=== PATIENT | female | born 1945 | race Caucasian/White ===

== ENCOUNTER 2019-09-27 10:00 | Emergency (ER) | payer MEDICARE ==
--- NOTE | 2019-09-27 10:20 | ERPHSYRPT ---
- History of Present Illness Time Seen by Provider: 09/27/19 10:20 Source: patient, family Exam Limitations: no limitations Physician History: This is a 73-year-old white female who is been diagnosed with arthritis. Patient states she actually has pain in several different joints. However in the last month her pain is more significant in her lower extremities bilaterally. She states pain in her left hip and right foot and ankle. She denies any acute traumatic injury. She is not on any medications for pain. Her primary care physician, Dr. Sotomayor, is out of the office until October and is concerned that the pain will be persistent and she has no management of her pain. She has been using Tylenol and ibuprofen and states that this regimen helps just a bit for very short period of time. Patient did take 1 of her husbands Lortab 7.5 mg tablets at his urging and that seemed to help her pain quite a bit. However she does not want to be on the hydrocodone medication long -term. Method of Injury: other (No injury) Occurred: other (Worsening over the last 30 days) Quality: constant, aching (In the mornings it is worse and slightly improved throughout the day as she is moving around but still present) Severity of Pain-Max: moderate Severity of Pain-Current: moderate Modifying Factors: Improves With: movement Associated Symptoms: other (Hurts all over in several joints throughout the day) Allergies/Adverse Reactions: No Known Drug Allergies Allergy (Unverified 09/27/19 10:41) Home Medications: Aspirin 81 mg PO DAILY 09/27/19 [History] - Review of Systems Constitutional: No Symptoms Eyes: No Symptoms Ears, Nose, & Throat: No Symptoms Respiratory: No Symptoms Cardiac: No Symptoms Abdominal/Gastrointestinal: No Symptoms Genitourinary Symptoms: No Symptoms Musculoskeletal: Joint Pain (All her joints), No Fall, No Injury Skin: No Symptoms Neurological: No Symptoms Psychological: No Symptoms Endocrine: No Symptoms Hematologic/Lymphatic: No Symptoms Immunological/Allergic: No Symptoms All Other Systems: Reviewed and Negative - Past Medical History Pertinent Past Medical History: Yes Neurological History: No Pertinent History ENT History: No Pertinent History Cardiac History: No Pertinent History Respiratory History: No Pertinent History Endocrine Medical History: No Pertinent History Musculoskeletal History: No Pertinent History GI Medical History: No Pertinent History History: No Pertinent History Psycho-Social History: No Pertinent History Female Reproductive Disorders: No Pertinent History - Past Surgical History Neuro Surgical History: No Pertinent History Cardiac: No Pertinent History Respiratory: No Pertinent History Gastrointestinal: No Pertinent History Genitourinary: No Pertinent History Musculoskeletal: No Pertinent History Female Surgical History: No Pertinent History - Nursing Vital Signs Nursing Vital Signs: Initial Vital Signs Pulse Rate 89 09/27/19 10:27 Respiratory Rate 16 09/27/19 10:27 Blood Pressure 174/92 09/27/19 10:27 O2 Sat by Pulse Oximetry 98 09/27/19 10:27 Pain Scale Pain Intensity [Right Hip] 10 Pain Intensity 10 - Physical Exam General Appearance: mild distress, alert, anxiety Eyes, Ears, Nose, Throat Exam: normal ENT inspection, moist mucous membranes Neck Exam: normal inspection, non-tender, supple, full range of motion Cardiovascular/Respiratory Exam: chest non-tender Gastrointestinal/Abdominal Exam: non-tender Back Exam: normal inspection, normal range of motion, CVA tenderness Hips Exam: bilateral: normal inspection, normal range of motion, no evidence of injury, pain (With movement) Legs Exam: bilateral leg: normal inspection, normal range of motion, no evidence of injury, pain (With movement) Knees Exam: bilateral knee: normal inspection, normal range of motion, no evidence of injury, pain (With movement) Ankle Exam: bilateral ankle: normal inspection, normal range of motion, no evidence of injury, pain (With movement) Foot Exam: bilateral foot: normal inspection, normal range of motion, no evidence of injury, pain (With movement) Neuro/Tendon Exam: normal sensation, normal motor functions, normal tendon functions, responds to pain, no evidence tendon injury, No motor deficit, No sensory deficit Mental Status Exam: alert, oriented x 3, cooperative Skin Exam: normal color, warm, dry SpO2 Interpretation: normal O2 Delivery: Room Air - Course Nursing assessment & vital signs reviewed: Yes Ordered Tests: Medication Summary Discontinued Medications Generic Name Dose Route Start Last Admin Trade Name Freq PRN Reason Stop Dose Admin Methylprednisolone Sodium Succinate 125 mg 09/27/19 10:52 Solu-Medrol 125 Mg IM 09/27/19 10:53 STAT ONE Tramadol HCl 50 mg 09/27/19 10:51 Ultram 50 Mg PO 09/27/19 10:52 STAT ONE - Progress Progress: unchanged Progress Note: 09/27/19 11:02 Medical decision making: The patient, her spouse and I had a long discussion regarding the patient's symptoms and possible diagnoses including arthritis, fibromyalgia, muscle skeletal pain. The patient wants to avoid hydrocodone and other narcotics. However, I did speak to her about using tramadol in combination with a steroid. I feel the most likely diagnosis is arthritis. Patient is aware that tramadol can break down into opiates and this is categorized as a narcotic. However she may not experience the sedation that some of the other narcotics give patients. Patient would like to use the combination of tramadol and steroids over the weekend and then she will contact her prescribing physician for further management. Patient does not want any other x-rays or other types of studies. She feels that her condition of arthritis is what is causing her pain in all her joints. Counseled pt/family regarding: diagnosis, need for follow-up, rad results - Departure Departure Disposition: Home Clinical Impression: Arthritis Condition: Stable Critical Care Time: No Referrals: NILDA SOTOMAYOR MD [Primary Care Provider] - Additional Instructions: Follow-up with your prescribing physician on September 30, 2019 for further management of your symptoms and complaints. Prescriptions: Prednisone 10 mg [Deltasone 10 mg] 10 mg PO BID #10 tablet Tramadol HCl 50 mg [Ultram 50 mg] 50 mg PO TID PRN #15 tablet MDD 3 PRN Reason: Moderate Pain
[2019-09-27] MEDS ORDERED: ULTRAM 50 MG PO ONE (10:51)
[2019-09-27] MEDS ORDERED: solu-MEDROL 125 MG IM ONE (10:52)
[2019-09-27] MEDS ORDERED: ULTRAM 50 MG ONE (11:12)
[2019-09-27] MEDS ORDERED: solu-MEDROL 125 MG ONE (11:12)
[2019-09-27 11:21] VITALS: BP 155/79; PULSE 73; O2SAT 95
== END 2019-09-27 11:46 | disposition home or self-care (01) ==
LOC: ED 10:00
DX: M19.90 Unspecified osteoarthritis, unspecified site (principal)
CPT/HCPCS: 96372; 99283; J2930; A9270-GY

== ENCOUNTER 2022-07-30 08:08 | Emergency (ER) | payer MEDICARE ==
[2022-07-30 08:25] VITALS: O2SAT 99
[2022-07-30] MEDS ORDERED: NORCO 5/325 MG PO ONE (09:08)
[2022-07-30] MEDS ORDERED: NORCO 5/325 MG ONE (09:12)
--- NOTE | 2022-07-30 09:12 | ERPHSYRPT ---
- History of Present Illness Time Seen by Provider: 07/30/22 08:17 Source: patient Exam Limitations: no limitations Patient Subjective Stated Complaint: Pt c/o of right shoulder pain, Triage Nursing Assessment: Pt brought to the ER by her , hypertensive, rates pain 10/, chronic pain in right shoulder, had x-ray done 8 years ago and was told that she had bone spurs and it started hurting about a month ago and Dr. Sotomayor put a shot in it but it gave her no relief and stated that the next day it began hurting even more, pt has an appt with him next Monday (6days), pt was also given Diclofenac twice a day and it hasn't given any relief Physician History: 76 years old female with history of arthritic right shoulder with chronic pain is getting worse for the last few weeks, was evaluated at primary care, given intra-articular injection with no relief and pain is gradually getting worse. Pain is moderate to severe sharp, more with movements of right shoulder and cannot raise above the head are backward. Sometimes pain does radiate to the arm. No recent fall or trauma reported. Occurred: other Quality: sharpness Severity of Pain-Max: severe Severity of Pain-Current: severe Extremities Pain Location: shoulder: right Modifying Factors: Improves With: immobilization. Worsens With: movement Allergies/Adverse Reactions: No Known Drug Allergies Allergy (Verified 07/30/22 08:24) Home Medications: Diclofenac Sodium 50 mg [Voltaren 50 mg] 50 mg PO BID 07/30/22 [History] Hx Tetanus, Diphtheria Vaccination/Date Given: No Hx Influenza Vaccination/Date Given: Yes Hx Pneumococcal Vaccination/Date Given: Yes Travel Risk - International Travel Have you traveled outside of the country in past 3 weeks: No - Coronavirus Screening Are you exhibiting any of the following symptoms?: No Close contact with a COVID-19 positive Pt in past 14-21 Days: No - Vaccine Status Have you recieved a Covid-19 vaccination: Yes 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 - Vaccination Dates Date of 2cond Vaccination (if applicable): 2020 - Review of Systems Constitutional: No Symptoms Ears, Nose, & Throat: No Symptoms Respiratory: No Symptoms Cardiac: No Symptoms Abdominal/Gastrointestinal: No Symptoms Genitourinary Symptoms: No Symptoms Musculoskeletal: Joint Pain Skin: No Symptoms Neurological: No Symptoms Hematologic/Lymphatic: No Symptoms Immunological/Allergic: No Symptoms - Past Medical History Pertinent Past Medical History: Yes Neurological History: No Pertinent History ENT History: No Pertinent History Cardiac History: No Pertinent History Respiratory History: No Pertinent History Endocrine Medical History: No Pertinent History Musculoskeletal History: No Pertinent History GI Medical History: No Pertinent History History: No Pertinent History Psycho-Social History: No Pertinent History Female Reproductive Disorders: No Pertinent History - Past Surgical History Past Surgical History: Yes Neuro Surgical History: No Pertinent History Cardiac: No Pertinent History Respiratory: No Pertinent History Gastrointestinal: Appendectomy Genitourinary: No Pertinent History Musculoskeletal: No Pertinent History Female Surgical History: Hysterectomy, Tubal Ligation - Social History Smoking Status: Current every day smoker Exposure to second hand smoke: Yes Drug Use: none Patient Lives Alone: No - Nursing Vital Signs Nursing Vital Signs: Initial Vital Signs Temperature 97.6 F 07/30/22 08:15 Pulse Rate 92 H 07/30/22 08:15 Blood Pressure 157/119 07/30/22 08:15 O2 Sat by Pulse Oximetry 99 07/30/22 08:15 Pain Scale Pain Intensity 6 - Physical Exam General Appearance: no apparent distress, alert Eyes, Ears, Nose, Throat Exam: normal ENT inspection Neck Exam: normal inspection, non-tender, supple, full range of motion Cardiovascular/Respiratory Exam: chest non-tender, normal breath sounds, regular rate/rhythm Abdominal Exam: non-tender Back Exam: normal inspection, normal range of motion Shoulder Exam: normal inspection, bone tenderness, limited ROM (Right shoulder cannot be taken above head. Positive empty can and Neer H[place]in. Intact distal neurovascular.), pain Elbow/Forearm Exam: normal inspection, non-tender, no evidence of injury, normal ROM Wrist Exam: normal inspection, non-tender, no evidence of injury, normal ROM Hand Exam: normal inspection Neuro/Tendon Exam: normal sensation Mental Status Exam: alert, oriented x 3, cooperative SpO2 Interpretation: normal SpO2: 99 O2 Delivery: Room Air Ordered Tests: Active Orders 24 hr Category Date Time Status SHOULDER Stat Exams 07/30/22 08:41 Taken Medication Summary Discontinued Medications Generic Name Dose Route Start Last Admin Trade Name Freq PRN Reason Stop Dose Admin Hydrocodone Bitart/Acetaminophen 1 tab 07/30/22 09:08 07/30/22 09:13 Hydrocodone/Apap 5/325 1 Tab Tablet PO 07/30/22 09:09 1 tab STAT ONE Administration Hydrocodone Bitart/Acetaminophen Confirm 07/30/22 09:12 Hydrocodone/Apap 5/325 1 Tab Tablet Administered 07/30/22 09:13 Dose 1 tab .ROUTE .STK-MED ONE - Progress Progress: unchanged, pain not gone completely Progress Note: 07/30/22 09:08 76 years old is evaluated for right shoulder pain worsening lately. Does have history of arthritis in the right shoulder. She was evaluated by primary care with intra-articular injection with no significant relief. Patient pain is more with mobility of right shoulder and has restriction with positive Neer Muñiz and empty can test. Intact distal neurovascular. I have obtained x-rays which showed arthritic changes but no obvious fracture dislocation. She is given symptomatic treatment for pain here and to go home. Patient is feeling better on reevaluation. I believe patient is having rotator cuff injury and need further evaluation by Ortho with MRI/therapy. Discussed signs symptoms of worsening needing return to ER which she seems understanding. Stable for discharge. Counseled pt/family regarding: diagnosis, need for follow-up, rad results - Departure Departure Disposition: Home Clinical Impression: Rotator cuff arthropathy of right shoulder Condition: Stable Critical Care Time: No Referrals: NILDA SOTOMAYOR MD [Primary Care Provider] - Follow Up with PCP/3 days ORTHO - CHAD BASURTO NP [NON-STAFF PHY W/O PRIVILEGES] - Follow up/PCP as directed (In 2 days for reevaluation) Instructions: Shoulder Tendinopathy (DC) Additional Instructions: Avoid exertional work with right upper extremity. Intermittent ice application. Take diclofenac and [place] as needed for pain. Use cane/walker for ambulation to avoid a fall while being on pain medications. Follow-up with orthopedic surgery for reevaluation early next week. Prescriptions: Hydrocodone/Acetaminophen [Hydrocodone-Acetamin 5-325 mg] 1 tab PO Q6HPRN PRN 3 Days #12 tablet MDD 4 PRN Reason: Pain
[2022-07-30 09:33] VITALS: BP 170/85; PULSE 87
--- NOTE | 2022-07-30 19:34 | XRAY ---
Indication: Pain. Comparison: None 3 view right shoulder demonstrates osteopenia, moderate/advanced glenohumeral degenerative changes, faint curvilinear calcifications superior to humeral head degenerative versus old injury, and mild degenerative changes visualized spine. No other bony, articular, or soft tissue abnormalities.
== END 2022-07-30 09:38 | disposition home or self-care (01) ==
LOC: ED 08:08
DX: M19.011 Primary osteoarthritis, right shoulder (principal); M25.511 Pain in right shoulder; Z79.891 Long term (current) use of opiate analgesic; Z79.899 Other long term (current) drug therapy; Z72.0 Tobacco use
CPT/HCPCS: 73030; 99283; A9270-GY